=== PATIENT | male | born 1975 | race Caucasian/White ===

== ENCOUNTER 2020-08-19 07:03 | Emergency (ER) | payer OTHER ==
[2020-08-19 07:16] VITALS: BP 137/96; PULSE 68; TEMP 98; BMI 25.8
[2020-08-19] MEDS ORDERED: KETOROLAC TROMETHAMINE 60 MG/2 ML VIAL IM ONE (07:47)
[2020-08-19] MEDS ORDERED: KETOROLAC TROMETHAMINE 30 MG/1 ML VIAL ONE (07:53)
== END 2020-08-19 10:10 | disposition home or self-care (01) ==
LOC: JER 07:03
PROC: 3E0233Z Introduction of Anti-inflammatory into Muscle, Percutaneous Approach (ICD-10-PCS; principal; 2020-08-19)
DX: M25.562 Pain in left knee (principal)
CPT/HCPCS: 99284-25